=== PATIENT | male | born 1990 | race Hispanic/Latino ===

== ENCOUNTER 2023-01-26 13:11 | Emergency (ER) | payer OTHER ==
[~2023-01-26] VITALS: Ht 177.8 cm; Wt 111.1 kg
[2023-01-26] MEDS ORDERED: CEFTRIAXONE 2GM VIAL IVPB ONE (16:00)
[2023-01-26] MEDS ORDERED: DOXY100T2 PO (16:09)
[2023-01-26 16:39] VITALS: BP 145/80; PULSE 70; RESP 18; O2SAT 100
== END 2023-01-26 16:40 | disposition home or self-care (01) ==
LOC: EDH 13:11
DX: N48.29 Other inflammatory disorders of penis (principal); Z20.2 Contact with and (suspected) exposure to infections with a predominantly sexual mode of transmission; Z90.49 Acquired absence of other specified parts of digestive tract; Z98.890 Other specified postprocedural states
CPT/HCPCS: 99283; 96374; 87797; 87486; J0696